=== PATIENT | female | born 1940 | race Caucasian/White ===

== ENCOUNTER 2017-02-11 12:21 | Emergency (ER) | payer OTHER ==
[2017-02-11 12:36] VITALS: BMI 29.2
[2017-02-11 12:57] LABS: BASOPHIL 0.6 % (0-2.0); MCH 29.6 pg (25.7-33.7); MCHC 32.8 g/dl (32.0-36.0); MEAN PLT VOLUME 7.1 fl (7.5-11.1); NEUTROPHILS 72.2 % (42.8-82.8); PLATELET COUNT 283 K/MM3 (134-434); RDW 14.1 % (11.6-15.6)
[2017-02-11 13:09] LABS: INR 1.02 (0.82-1.09); PROTHROMBIN TIME (PATIENT) 11.5 SEC (9.98-11.88)
--- NOTE | 2017-02-11 13:16 | PDOC ---
History of Present Illness - General Chief Complaint: Chest Pain Stated Complaint: CHEST DISCOMFORT Time Seen by Provider: 02/11/17 13:12 History Source: Patient Exam Limitations: No Limitations - History of Present Illness Initial Comments: 02/11/17 14:30 76yo woman with PMH of HTN, HLD, asthma, reported sarcoidosis who presents with sore throat for the past few days and worsening dry cough since last night. She started having a sore throat, which she describes "burning and tickling" in character. Last night she developed a persistent dry cough in the evening that kept her up all night. Endorses some chills last night, but denies fever or myalgias. No recent sick contacts or travel. She hasn't taken any medications for the sore throat/cough. Reports having influenza vaccine earlier in the year. 02/11/17 15:41 Past History - Past Medical History Allergies/Adverse Reactions: Allergies Allergy/AdvReac Type Severity Reaction Status Date / Time No Known Drug Allergies Allergy Verified 10/21/13 18:52 Home Medications: Ambulatory Orders Atorvastatin Ca [Lipitor] 10 mg PO DAILY 01/14/13 Metoprolol Succinate [Toprol XL -] 25 mg PO DAILY #0 tab.sr.24h 04/02/13 Benzonatate [Tessalon Pearls -] 100 mg PO TID PRN #21 capsule 02/11/17 Losartan Potassium 25 mg PO 02/11/17 Triamcinolone Acetonide [Nasacort] 10.8 ml NS DAILY PRN #1 spray 02/11/17 Asthma: Yes HTN: Yes Hypercholesterolemia: Yes - Suicide/Smoking/Psychosocial Hx Smoking Status: Yes Smoking History: Former smoker Have you smoked in the past 12 months: No Number of Cigarettes Smoked Daily: 0 If you are a former smoker, when did you quit?: 1975 Information on smoking cessation initiated: No Hx Alcohol Use: No Drug/Substance Use Hx: No Substance Use Type: None Hx Substance Use Treatment: No *Physical Exam - Vital Signs Last Vital Signs Temp Pulse Resp BP Pulse Ox 98.1 F 66 20 158/90 99 02/11/17 12:31 02/11/17 12:31 02/11/17 12:31 02/11/17 12:31 02/11/17 12:31 - Physical Exam General Appearance: Yes: Nourished, Appropriately Dressed HEENT: positive: Pharyngeal Erythema ((-) exudates) Neck: positive: Supple, Lymphadenopathy (R), Lymphadenopathy (L) Respiratory/Chest: positive: Lungs Clear, Normal Breath Sounds Cardiovascular: positive: Regular Rhythm, Regular Rate, S1, S2 Vascular Pulses: Dorsalis-Pedis (R): 2+, Doralis-Pedis (L): 2+ Gastrointestinal/Abdominal: positive: Soft. negative: Tenderness Extremity: negative: Pedal Edema Heart Score/ECG Review - History History: Slightly suspicious - Electrocardiogram EKG: Normal - Age Age: >/= 65 - Risk Factors Risk Factors Heart Score: Yes Hx Hypercholesterolemia, Yes Hx Hypertension Based on the list above the patient has:: 1-2 risk factors - Troponin Troponin: </= normal limit - Score Heart Score - Total: 3 - ECG Intrepretation Rhythm: Regular Rhythm - Dolliver Dolliver: Left Dolliver Deviation - ECG Impressions Comment:: 02/11/17 12:33 EKG: NSR, rate 67, LAD, normal intervals, minimal voltage criteria for LVH, QTc 422 ED Treatment Course - LABORATORY CBC & Chemistry Diagram: 02/11/17 12:52 02/11/17 12:52 - ADDITIONAL ORDERS Additional order review: Laboratory Results 02/11/17 12:52 PT with INR 11.50 INR 1.02 02/11/17 12:52 RBC 4.32 D MCV 90.0 MCHC 32.8 RDW 14.1 MPV 7.1 L Neutrophils % 72.2 Lymphocytes % 18.3 Monocytes % 6.9 Eosinophils % 2.0 D Basophils % 0.6 - RADIOLOGY Radiology Studies Ordered: 02/11/17 14:44 CXR AP portable chest: Chest pain An AP view the chest reveals clear lungs, sclerotic knob, normal [place] and large heart. The angles are sharp. Soft tissues are intact and there are degenerative changes. Impression: No acute chest pathology. No change of an adverse nature since . Chest X-Ray Result: No Infiltrates Medical Decision Making - Medical Decision Making 02/11/17 15:07 76yo woman with HTN, HLD, and asthma who presents with acute onset sore throat and dry cough without fever. The patient is afebrile with no leukocytosis. There are no focal consolidations or other concerning pathology on CXR, making PNA less likely. Physical exam is notable for pharyngeal erythema and cervical LAD,which is more suggestive of a viral process.The patient does complain of right sided CP that is worse when she coughs and reproducible with palpation. EKG shows no ischemic changes and first troponin is negative. HEART score is 0- 3 with risk of major cardiac event 1.6%. VSS have been stable, and patient has had no coughing fits while in the ED. Overall, the patient is well-appearing and non-toxic. She has a home health aid , who is at bedside, and is comfortable going home. Discussed with patient that she possibly has a viral upper respiratory infection. Pt is stable for discharge home. 02/11/17 15:18 *DC/Admit/Observation/Transfer Diagnosis at time of Disposition: URI (upper respiratory infection) - Prescriptions Prescriptions: Benzonatate [Tessalon Pearls -] 100 mg PO TID PRN #21 capsule PRN Reason: Cough Triamcinolone Acetonide [Nasacort] 10.8 ml NS DAILY PRN #1 spray PRN Reason: Cough - Referrals Referrals: Mary Solano MD [Primary Care Provider] - - Patient Instructions Additional Instructions: Please follow-up with your primary care physician within 1-2 weeks. You are being prescribed the following medications: Tessalon Pearls for your cough and Nasacort nasal spray for congestion/cough. Take as directed. You may also try an [id number] medication called Zarbees for your sore throat. Please return to the Emergency Department if you have new, worsening, or concerning symptoms. - Post Discharge Activity
[2017-02-11 13:17] LABS: ALBUMIN 3.5 g/dl (3.4-5.0); ANION GAP 6 (8-16); CALCIUM 9.1 mg/dL (8.5-10.1); CO2 29 mmol/L (21-32); GLUCOSE,RANDOM 99 mg/dL (74-106)
[2017-02-11 13:22] LABS: BILIRUBIN,TOTAL 0.3 mg/dL (0.2-1.0); CREATININE 1.1 mg/dL (0.55-1.02); SGOT/AST 17 U/L (15-37); SGPT/ALT 24 U/L (12-78); TOT PROT 7.3 g/dl (6.4-8.2)
[2017-02-11 13:24] LABS: ALK PHOS 127 U/L (45-117); CPK 54 IU/L (26-192); TROPONIN I < 0.02 ng/ml (0.00-0.05)
--- NOTE | 2017-02-11 13:46 | PDOC ---
Attending Attestation - HPI HPI: 02/11/17 14:01 76 year old female, with PMH of sarcoidosis, asthma, HTN, and HLD, who presents to the emergency room BIBA complaining of sore throat, dry cough, and right sided chest pain that occurs with coughing since last night. She denies chest pain when she is not coughing and states that she does not have pain at this time. She notes that she experienced similar symptoms last month that resolved on its own. Denies SOB, leg swelling. Denies fever, nausea, vomiting. Allergies: NKA PCP: Dr. Mary Solano <Jolene Bergeron - Last Filed: 02/11/17 14:08> - Resident Resident Name: Dory Pedersen - ED Attending Attestation I have performed the following: I have examined & evaluated the patient, The case was reviewed & discussed with the resident, I agree w/resident's findings & plan, Exceptions are as noted - Physicial Exam PE: GENERAL: Awake, alert, and fully oriented, in no acute distress HEAD: No signs of trauma EYES: PERRLA, EOMI, sclera anicteric, conjunctiva clear ENT: Auricles normal inspection, hearing grossly normal, nares patent, oropharynx clear without exudates. Moist mucosa NECK: Normal ROM, supple, no lymphadenopathy, JVD, or masses LUNGS: Breath sounds equal, clear to auscultation bilaterally. No wheezes, and no crackles. +Intermittent dry cough. HEART: Regular rate and rhythm, normal S1 and S2, no murmurs, rubs or gallops ABDOMEN: Soft, nontender, normoactive bowel sounds. No guarding, no rebound. No masses EXTREMITIES: Normal range of motion, no edema. No clubbing or cyanosis. No cords, erythema, or tenderness NEUROLOGICAL: Cranial nerves II through XII grossly intact. Normal speech, normal gait SKIN: Warm, Dry, normal turgor, no rashes or lesions noted. - Medical Decision Making Pt with URI symptoms, pain that only occurs in conjunction with cough. ACS considered unlikely based on history and clinical appearance. Stable for DC home with symptomatic treatment. <Gretchen Ray - Last Filed: 02/11/17 18:37> Heart Score/ECG Review - History History: Slightly suspicious - Electrocardiogram EKG: Normal - Age Age: >/= 65 - Risk Factors Risk Factors Heart Score: Yes Hx Hypercholesterolemia, Yes Hx Hypertension Based on the list above the patient has:: 1-2 risk factors - Troponin Troponin: </= normal limit - Score Heart Score - Total: 3 - ECG Impressions Comment:: EKG read 12:33- <Gretchen Ray - Last Filed: 02/11/17 18:37>
[2017-02-11 15:14] VITALS: BP 140/84; PULSE 67; TEMP 98.2
--- NOTE | 2017-02-11 17:10 | EKG ---
Test Reason : Blood Pressure : / mmHG Vent. Rate : 067 BPM Atrial Rate : 067 BPM P-R Int : 148 ms QRS Dur : 084 ms QT Int : 400 ms P-R-T Axes : 005 -35 072 degrees QTc Int : 422 ms NORMAL SINUS RHYTHM LEFT AXIS DEVIATION MINIMAL VOLTAGE CRITERIA FOR LVH, MAY BE NORMAL VARIANT EARLY R WAVE PROGRESSION ABNORMAL ECG WHEN COMPARED WITH ECG OF 31-MAR-2013 13:11, NO SIGNIFICANT CHANGE WAS FOUND Confirmed by KELSY LAINEZ MD ([id number]) on 02/11/2017 5:10:23 PM Referred By: Confirmed By:KELSY LAINEZ MD
== END 2017-02-11 15:15 | disposition home or self-care (01) ==
LOC: JER 12:21
DX: J06.9 Acute upper respiratory infection, unspecified (principal); I10 Essential (primary) hypertension; E78.00 Pure hypercholesterolemia, unspecified; J45.909 Unspecified asthma, uncomplicated; D86.9 Sarcoidosis, unspecified
CPT/HCPCS: 36415; 71010-TC; 80053; 82550; 84484; 85025; 85610; 93005; 93010; 99283-25

== ENCOUNTER 2018-04-21 12:36 | Emergency (ER) | payer OTHER ==
[2018-04-21 12:49] VITALS: BP 170/79; PULSE 63; TEMP 97.8; BMI 31.8
[2018-04-21] MEDS ORDERED: LIDOCAINE 5% TOPICAL PATCH TP ONE (14:27)
[2018-04-21] MEDS ORDERED: traMADol HCL 50 MG TABLET PO ONE (14:27)
[2018-04-21] MEDS ORDERED: LIDOCAINE 5% TOPICAL PATCH ONE (14:41)
[2018-04-21] MEDS ORDERED: traMADol HCL 50 MG TABLET ONE (14:42)
[2018-04-21 15:13] LABS: URINE APPEARANCE CLEAR; URINE BILIRUBIN NEGATIVE (<2.0 mg/dL); URINE COLOR YELLOW; URINE GLUCOSE (UA) NEGATIVE (NEGATIVE); URINE KETONE NEGATIVE (NEGATIVE); URINE LEUK ESTERASE TRACE (NEGATIVE); URINE NITRITE NEGATIVE (NEGATIVE); URINE PROTEIN 1+ (NEGATIVE); URINE UROBILINOGEN NEGATIVE mg/dL (0.2-1.0)
[2018-04-21 15:23] LABS: EPI CELLS RARE /HPF (FEW); URINE MUCUS RARE
--- NOTE | 2018-04-21 15:42 | PDOC ---
History of Present Illness - General Chief Complaint: Back Pain Stated Complaint: LOWER BACK PAIN Time Seen by Provider: 04/21/18 14:06 History Source: Patient Exam Limitations: No Limitations - History of Present Illness Initial Comments: 04/21/18 20:09 Patient is 77-year-old female past medical history of hypertension, prior back surgery, who presents to the ER for low back pain. Patient states that she bent to grab a grocery bag and felt a pull in her low back she states that the pain is on the left side. Denies numbness and tingling to the extremities, bladder bowel incontinence and sacral anesthesia. Denies falling or trauma Past History - Travel Traveled outside of the country in the last 30 days: No Close contact w/someone who was outside of country & ill: No - Past Medical History Allergies/Adverse Reactions: Allergies Allergy/AdvReac Type Severity Reaction Status Date / Time ibuprofen Allergy Verified 04/21/18 12:46 Home Medications: Ambulatory Orders Atorvastatin Ca [Lipitor] 10 mg PO DAILY 01/14/13 Metoprolol Succinate [Toprol XL -] 25 mg PO DAILY #0 tab.sr.24h 04/02/13 Benzonatate [Tessalon Pearls -] 100 mg PO TID PRN #21 capsule 02/11/17 Losartan Potassium 25 mg PO 02/11/17 Triamcinolone Acetonide [Nasacort] 10.8 ml NS DAILY PRN #1 spray 02/11/17 Asthma: Yes COPD: No HTN: Yes Hypercholesterolemia: Yes - Suicide/Smoking/Psychosocial Hx Smoking Status: Yes Smoking History: Never smoked Have you smoked in the past 12 months: No Number of Cigarettes Smoked Daily: 0 If you are a former smoker, when did you quit?: 1975 Hx Alcohol Use: No Drug/Substance Use Hx: No Substance Use Type: None Hx Substance Use Treatment: No Review of Systems - Review of Systems Able to Perform ROS?: Yes Comments:: 04/21/18 15:36 CONSTITUTIONAL: Absent: fever, chills, diaphoresis, generalized weakness, malaise, loss of appetite GASTROINTESTINAL: Absent: abdominal pain, abdominal distension, nausea, vomiting, diarrhea, constipation, melena, hematochezia GENITOURINARY: Absent: dysuria, frequency, urgency, hesitancy, hematuria, flank pain, genital pain MUSCULOSKELETAL: Present: low back pain Absent: arthralgia, joint swelling SKIN: Absent: rash, itching, pallor NEUROLOGIC: Absent: headache, focal weakness or paresthesias, dizziness, unsteady gait, seizure, mental status changes, bladder or bowel incontinence PSYCHIATRIC: Absent: anxiety, depression, suicidal or homicidal ideation, hallucinations. Is the patient limited Estonian proficient: No *Physical Exam - Vital Signs Last Vital Signs Temp Pulse Resp BP Pulse Ox 97.8 F 63 18 170/79 97 04/21/18 12:47 04/21/18 12:47 04/21/18 12:47 04/21/18 12:47 04/21/18 12:47 - Physical Exam Comments: 04/21/18 15:36 GENERAL: Well developed, well nourished. Awake and alert. No acute distress. NECK: Supple. Full ROM. No JVD. Carotid pulses 2+ and symmetric, without bruits. No thyromegaly. No lymphadenopathy. MUSCULOSKELETAL TTP of the L paraspinous muscles, L3-L5, with palpable knot consistent with muscle spasm. (-) straight leg raise. Normal range of motion at all joints. No bony deformities or tenderness. No CVA tenderness. EXTREMITIES: No cyanosis. No clubbing. No edema. No calf tenderness. SKIN: Warm and dry. Normal capillary refill. No rashes. No jaundice. NEUROLOGICAL: Alert, awake, appropriate. Cranial nerves 2-12 intact. No deficits to light touch and temperature in face, upper extremities and lower extremities. No motor deficits in the in face, upper extremities and lower extremities. Normoreflexic in the upper and lower extremities. Normal speech. Toes are down- going bilaterally. Gait is normal without ataxia. PSYCHIATRIC: Cooperative. Good eye contact. Appropriate mood and affect. Moderate Sedation - Procedure Monitoring Vital Signs: Procedure Monitoring Vital Signs Temperature 97.8 F 04/21/18 12:47 Pulse Rate 63 04/21/18 12:47 Respiratory Rate 18 04/21/18 12:47 Blood Pressure 170/79 04/21/18 12:47 O2 Sat by Pulse Oximetry (%) 97 04/21/18 12:47 ED Treatment Course - ADDITIONAL ORDERS Additional order review: Laboratory Results 04/21/18 15:00 Urine Color Yellow Urine Appearance Clear Urine pH 5.0 Ur Specific Sneads 1.019 Urine Protein 1+ H Urine Glucose (UA) Negative Urine Ketones Negative Urine Blood Negative Urine Nitrite Negative Urine Bilirubin Negative Urine Urobilinogen Negative Ur Leukocyte Esterase Trace - Medications Given in the ED: ED Medications Discontinued Medications Generic Name Dose Route Start Last Admin Trade Name Lorraine PRN Reason Stop Dose Admin Lidocaine 1 patch 04/21/18 14:27 04/21/18 15:00 Lidoderm Patch - TP 04/21/18 14:28 1 patch ONCE ONE Administration Tramadol HCl 50 mg 04/21/18 14:27 04/21/18 15:00 Ultram - PO 04/21/18 14:28 50 mg ONCE ONE Administration Medical Decision Making - Medical Decision Making 04/21/18 15:36 -Pt with TTP of the L paraspinous muscles, L3-L5, with palpable knot consistent with muscle spasm. (-) straight leg raise -No trauma, or fever. No saddle anesthesia or bladder/bowel incontinence. No CVA tenderness. -Pt is neurologically intact on exam with no focal findings. -Tramdol, lidocaine patch given with relief of symptoms -DC home. Ortho follow up given for if symptoms do not resolve. -I discussed the physical exam findings, ancillary test results and final diagnoses with the patient. I answered all of the patient's questions. The patient was satisfied with the care received and felt comfortable with the discharge plan and treatment plan. The Patient agrees to follow up with the primary care physician/specialist within 24-72 hours. Return precautions were given. *DC/Admit/Observation/Transfer Diagnosis at time of Disposition: Back pain Qualifiers: Back pain location: low back pain Chronicity: acute Back pain laterality: left Sciatica presence: without sciatica Qualified Code(s): M54.5 - Low back pain - Discharge Dispostion Disposition: HOME Condition at time of disposition: Stable Decision to Admit order: No - Referrals Referrals: Mary Solano MD [Primary Care Provider] - - Patient Instructions Printed Discharge Instructions: DI for Low Back Pain Additional Instructions: You have low back pain due to a muscle spasm. Please take tramadol twice a day for pain. Do not drive after taking this medication as it may make you sleepy. You may use warm compresses on your back to help with her symptoms. You may use an over the counter lidocaine patch once daily to the area. Please follow-up with your primary care doctor. If your symptoms do not resolve in 3-5 days, follow-up with orthopedics. A referral has been provided for you. Return to the emergency department if you have worsening back pain, bladder or bowel incontinence, numbness and tingling in her legs, changes in the way you walk, or any new or worsening symptoms. - Post Discharge Activity
[2018-04-21] MEDS ORDERED: LIDOCAINE PATCH REMOVAL MC SCH (22:00)
== END 2018-04-21 15:53 | disposition home or self-care (01) ==
LOC: JERFT 12:36
DX: M54.5 Low back pain (principal); I10 Essential (primary) hypertension; Z87.891 Personal history of nicotine dependence; J45.909 Unspecified asthma, uncomplicated; E78.00 Pure hypercholesterolemia, unspecified
CPT/HCPCS: 81003; 81015; 87086; 99281-25

== ENCOUNTER 2018-07-31 12:05 | Emergency (ER) | payer OTHER ==
[2018-07-31 12:19] VITALS: BMI 34.9
[2018-07-31] MEDS ORDERED: ACETAMINOPHEN 500 MG TABLET (FP) PO ONE (12:46)
[2018-07-31] MEDS ORDERED: LIDOCAINE 5% TOPICAL PATCH TP ONE (12:46)
[2018-07-31] MEDS ORDERED: LIDOCAINE 5% TOPICAL PATCH ONE (12:50)
[2018-07-31] MEDS ORDERED: ACETAMINOPHEN 325 MG TABLET (FP) ONE (12:50)
--- NOTE | 2018-07-31 13:53 | PDOC ---
History of Present Illness - General Chief Complaint: Pain, Acute Stated Complaint: RT ARM PAIN Time Seen by Provider: 07/31/18 12:23 History Source: Patient Exam Limitations: No Limitations Past History - Travel Traveled outside of the country in the last 30 days: No Close contact w/someone who was outside of country & ill: No - Past Medical History Allergies/Adverse Reactions: Allergies Allergy/AdvReac Type Severity Reaction Status Date / Time ibuprofen Allergy Verified 07/31/18 12:08 Home Medications: Ambulatory Orders Atorvastatin Ca [Lipitor] 10 mg PO DAILY 01/14/13 Metoprolol Succinate [Toprol XL -] 25 mg PO DAILY #0 tab.sr.24h 04/02/13 Losartan Potassium 25 mg PO DAILY 02/11/17 Acetaminophen [Tylenol -] 1,000 mg PO Q6H #30 tablet 07/31/18 Lidocaine 5% Patch [Lidoderm -] 1 patch TP DAILY #7 patch 07/31/18 Asthma: Yes COPD: No HTN: Yes Hypercholesterolemia: Yes - Suicide/Smoking/Psychosocial Hx Smoking Status: Yes Smoking History: Unknown if ever smoked Have you smoked in the past 12 months: No Number of Cigarettes Smoked Daily: 0 If you are a former smoker, when did you quit?: 1975 Hx Alcohol Use: No Drug/Substance Use Hx: No Substance Use Type: None Hx Substance Use Treatment: No Review of Systems - Review of Systems Able to Perform ROS?: Yes Comments:: 07/31/18 13:48 CONSTITUTIONAL: Absent: fever, chills, diaphoresis, generalized weakness, malaise, loss of appetite CARDIOVASCULAR: Absent: chest pain, loss of consciousness, palpitations, irregular heart rate, peripheral edema RESPIRATORY: Absent: cough, shortness of breath, dyspnea with exertion, orthopnea, wheezing, stridor, hemoptysis MUSCULOSKELETAL: Present: R arm pain Absent: myalgia, joint swelling SKIN: Absent: rash, itching, pallor NEUROLOGIC: Absent: headache, focal weakness or paresthesias, dizziness, unsteady gait, seizure, mental status changes, bladder or bowel incontinence PSYCHIATRIC: Absent: anxiety, depression, suicidal or homicidal ideation, hallucinations. Is the patient limited Romanian proficient: No *Physical Exam - Vital Signs Last Vital Signs Temp Pulse Resp BP Pulse Ox 98 F 71 18 136/85 98 07/31/18 12:13 07/31/18 12:13 07/31/18 12:13 07/31/18 12:13 07/31/18 12:13 - Physical Exam Comments: 07/31/18 13:49 GENERAL: The patient is awake, alert, and fully oriented, in no acute distress. HEAD: Normal with no signs of trauma. EYES: Pupils equal, round and reactive to light, extraocular movements intact, sclera anicteric, conjunctiva clear. EXTREMITIES: Normal range of motion, no edema. NEUROLOGICAL: Normal speech, normal gait. PSYCH: Normal mood, normal affect. SKIN: Warm, Dry, normal turgor, no rashes or lesions noted. ED Treatment Course - RADIOLOGY Radiology Studies Ordered: Category Date Time Status SHOULDER-RIGHT [RAD] Stat Radiology 07/31/18 12:45 Taken - Medications Given in the ED: ED Medications Discontinued Medications Generic Name Dose Route Start Last Admin Trade Name Freq PRN Reason Stop Dose Admin Acetaminophen 1,000 mg 07/31/18 12:46 07/31/18 12:57 Tylenol - PO 07/31/18 12:47 1,000 mg ONCE ONE Administration Lidocaine 1 patch 07/31/18 12:46 07/31/18 12:56 Lidoderm Patch - TP 07/31/18 12:47 1 patch ONCE ONE Administration Medical Decision Making - Medical Decision Making 07/31/18 15:39 The patient is a 78-year-old female with past medical history of hypertension, who presents to the emergency department today for right shoulder pain. She states she was at physical therapy 2 days when she sat up suddenly and twisted her right arm. She states that after that incident she has had pain in her right shoulder and is unable to lift her right arm. She states she is unable to sleep last night due to the pain. Denies fall, trauma, weakness, tingling and numbness to the affected extremity. Patient is right-hand dominant. A/P: Right shoulder pain On exam patient with positive drop arm test on the right side suspicious for rotator cuff injury. X-ray obtained of the right shoulder shows no fractures or dislocations on wet read. Patient orthopedic follow-up. Patient unable to use a sling she uses that arm for her cane. Pain relieved with Tylenol and lidocaine patch Discharge home I discussed the physical exam findings, ancillary test results and final diagnoses with the patient. I answered all of the patient's questions. The patient was satisfied with the care received and felt comfortable with the discharge plan and treatment plan. The Patient agrees to follow up with the primary care physician/specialist within 24-72 hours. Return precautions were given. *DC/Admit/Observation/Transfer Diagnosis at time of Disposition: Shoulder pain, right Qualifiers: Chronicity: acute Qualified Code(s): M25.511 - Pain in right shoulder - Discharge Dispostion Disposition: HOME Condition at time of disposition: Stable Decision to Admit order: No - Prescriptions Prescriptions: Acetaminophen [Tylenol -] 1,000 mg PO Q6H #30 tablet Lidocaine 5% Patch [Lidoderm -] 1 patch TP DAILY #7 patch - Referrals Referrals: Danilo Payan MD [Staff Physician] - - Patient Instructions Printed Discharge Instructions: DI for Shoulder Pain Additional Instructions: You were evaluated for your shoulder pain today Your x-ray did not show any broken bones or dislocation You may have injured your rotator cuff Take the Tylenol and lidocaine patch as prescribed Follow up with orthopedics this week. A referral has been provided to you Return to the ER for worsening pain, fever, chest pain, or if you have any changes in your symptoms - Post Discharge Activity
[2018-07-31 14:03] VITALS: BP 130/82; PULSE 78; TEMP 98
[2018-07-31] MEDS ORDERED: LIDOCAINE PATCH REMOVAL MC SCH (22:00)
== END 2018-07-31 14:00 | disposition home or self-care (01) ==
LOC: JER 12:05
DX: M25.511 Pain in right shoulder (principal); I10 Essential (primary) hypertension; J45.909 Unspecified asthma, uncomplicated; E78.00 Pure hypercholesterolemia, unspecified
CPT/HCPCS: 73030-TC-RT-FY; 99282-25

== ENCOUNTER 2019-05-04 11:28 | Emergency (ER) | payer OTHER ==
[2019-05-04 12:17] VITALS: BP 143/74; PULSE 87; TEMP 97.7; BMI 25.9
[2019-05-04] MEDS ORDERED: ACETAMINOPHEN 325 MG TABLET (FP) PO ONE (13:39)
--- NOTE | 2019-05-04 13:40 | PDOC ---
History of Present Illness - General Chief Complaint: Pain, Acute Stated Complaint: RT KNEE PAIN Time Seen by Provider: 05/04/19 12:55 History Source: Patient Exam Limitations: No Limitations Past History - Travel Traveled outside of the country in the last 30 days: No Close contact w/someone who was outside of country & ill: No - Past Medical History Allergies/Adverse Reactions: Allergies Allergy/AdvReac Type Severity Reaction Status Date / Time ibuprofen Allergy Verified 05/04/19 12:10 Home Medications: Ambulatory Orders Atorvastatin Ca [Lipitor] 10 mg PO DAILY 01/14/13 Metoprolol Succinate [Toprol XL -] 25 mg PO DAILY #0 tab.sr.24h 04/02/13 Losartan Potassium 100 mg PO DAILY 02/11/17 Acetaminophen [Tylenol -] 1,000 mg PO Q6H #30 tablet 07/31/18 Amlodipine Besylate [Norvasc -] 5 mg PO DAILY 05/04/19 Divalproex [Depakote -] 125 mg PO BID 05/04/19 Donepezil HCl [Aricept] 10 mg PO HS 05/04/19 Hydrochlorothiazide [Hctz -] 25 mg PO DAILY 05/04/19 Meloxicam 1 tab PO HS 05/04/19 Montelukast Sodium [Singulair] 10 mg PO HS 05/04/19 Oxycodone HCl/Acetaminophen [Percocet 5-325 mg Tablet] 1 tab PO Q6H #12 tablet MDD 4 05/04/19 Walker [Ultra-Light Rollator] 1 each MC ASDIR #1 each 05/04/19 Asthma: Yes COPD: No HTN: Yes Hypercholesterolemia: Yes - Psycho Social/Smoking Cessation Hx Smoking Status: Yes Smoking History: Never smoked Have you smoked in the past 12 months: No Number of Cigarettes Smoked Daily: 0 If you are a former smoker, when did you quit?: 1975 Hx Alcohol Use: No Drug/Substance Use Hx: No Substance Use Type: None Hx Substance Use Treatment: No Review of Systems - Review of Systems Able to Perform ROS?: Yes Comments:: 05/04/19 18:59 CONSTITUTIONAL: Absent: fever, chills, diaphoresis, generalized weakness, malaise, loss of appetite HEENT: Absent: rhinorrhea, nasal congestion, throat pain, throat swelling, difficulty swallowing, mouth swelling, ear pain, eye pain, visual Changes MUSCULOSKELETAL: Present: Right knee pain and swelling absent: myalgia, arthralgia SKIN: Absent: rash, itching, pallor NEUROLOGIC: Absent: headache, focal weakness or paresthesias, dizziness, unsteady gait, seizure, mental status changes, bladder or bowel incontinence PSYCHIATRIC: Absent: anxiety, depression, suicidal or homicidal ideation, hallucinations. Is the patient limited Indian proficient: No *Physical Exam - Vital Signs Last Vital Signs Temp Pulse Resp BP Pulse Ox 97.7 F 87 18 143/74 98 05/04/19 12:15 05/04/19 12:15 05/04/19 12:15 05/04/19 12:15 05/04/19 12:15 - Physical Exam 05/04/19 19:00 GENERAL: The patient is awake, alert, and fully oriented, in no acute distress. HEAD: Normal with no signs of trauma. EYES: Pupils equal, round and reactive to light, extraocular movements intact, sclera anicteric, conjunctiva clear. EXTREMITIES: TTP of the R anterior knee with associated swelling. Lacy's, anterior/posterior draw, varus and valgus stress tests are all negative for the right knee. Normal range of motion NEUROLOGICAL: Normal speech, normal gait. PSYCH: Normal mood, normal affect. SKIN: Warm, Dry, normal turgor, no rashes or lesions noted. Medical Decision Making - Medical Decision Making 05/04/19 19:08 Patient is a 78-year-old female brought in by ambulance with past medical history of hypertension, hyperlipidemia, presents to the ER today for right knee pain. She states she was sitting when she got up and twisted her knee. She states that she had a lot of pain and has been having trouble walking due to the pain. Denies fevers, chills, fall, numbness and tingling and weakness the affected extremity. A/P: Right knee pain On exam special testing of the right knee is negative, PMS is grossly intact. There is some mild associated swelling to the superior aspect of the anterior right knee. X-ray shows no effusion Likely the cause of patient's pain in the setting of recent twisting injury. Tushar wrap is applied and referred to orthopedics. Discharge home I discussed the physical exam findings, ancillary test results and final diagnoses with the patient. I answered all of the patient's questions. The patient was satisfied with the care received and felt comfortable with the discharge plan and treatment plan. The Patient agrees to follow up with the primary care physician/specialist within 24-72 hours. Return precautions were given. Discharge - Discharge Information Problems reviewed: Yes Clinical Impression/Diagnosis: Knee pain, right Qualifiers: Chronicity: acute Qualified Code(s): M25.561 - Pain in right knee Condition: Stable Disposition: HOME - Admission No - Additional Discharge Information Prescriptions: Oxycodone HCl/Acetaminophen [Percocet 5-325 mg Tablet] 1 tab PO Q6H #12 tablet MDD 4 Walker [Ultra-Light Rollator] 1 each ASDIR #1 each - Follow up/Referral Referrals: Mary Solano MD [Primary Care Provider] - Hubert Ruiz DO [Staff Physician] - - Patient Discharge Instructions Additional Instructions: You were evaluated for your knee pain today. You have an effusion around the knee or fluid. This is most likely what is causing your pain. Please wear the Tushar wrap for comfort. You may take the Percocet every 6 hours as needed for pain. Please call orthopedics today to schedule an appointment to have the effusion addressed. Our referral has been provided to you. Return to the ER for worsening pain, inability to walk, numbness and tingling to the extremity or if you have any changes in your symptoms. - Post Discharge Activity
[2019-05-04] MEDS ORDERED: ACETAMINOPHEN 500 MG TABLET (FP) ONE (13:42)
== END 2019-05-04 15:28 | disposition home or self-care (01) ==
LOC: JERFT 11:28
DX: M25.461 Effusion, right knee (principal); M25.561 Pain in right knee; I10 Essential (primary) hypertension; J45.909 Unspecified asthma, uncomplicated; E78.5 Hyperlipidemia, unspecified
CPT/HCPCS: 73562-TC-RT-FY; 99283-25